=== PATIENT | male | born 1975 | race Caucasian/White ===

== ENCOUNTER 2024-06-12 10:19 | Emergency (ER) | payer BC ==
[~2024-06-12] VITALS: Ht 172.7 cm; Wt 63.0 kg
[~2024-06-12 10:19] MED LIST: FLOMAX0.4 MG PO; NORCO 325 MG-51 TA1 PO
[2024-06-12] MEDS ORDERED: fentaNYL 100 MCG/2 ML VIAL IV ONE (10:30)
[2024-06-12] MEDS ORDERED: NS 1,000 ML IV SCH (10:30)
[2024-06-12] MEDS ORDERED: Ketorolac 30 MG/ML VIAL IV ONE (10:30)
[2024-06-12 10:46] LABS: BASO # 0.04 K/mm3 (0.02-0.10); EOS # 0.07 K/mm3 (0.04-0.40); EOS % 0.5 % (0.0-4.0); HEMATOCRIT 45.5 % (42.0-52.0); HEMOGLOBIN 15.9 g/dL (13.5-18.0); LYMPH# 1.54 K/mm3 (1.50-4.00); MEAN CELL VOLUME 92 fl (78-100); MEAN CORPUSCULAR HEMOGLOBIN 32 pg (27-31); MEAN CORPUSCULAR HGB CONC 35 g/dL (33-37); MEAN PLATELET VOLUME 9.4 fl (7.4-10.4); MONO # 0.77 K/mm3 (0.20-0.80); NEU # 10.88 K/mm3 (1.40-6.50); PLATELET COUNT 193 K/mm3 (130-400); RED BLOOD COUNT 4.93 M/mm3 (4.20-5.60); RED CELL DISTRIBUTION WIDTH 13.1 % (11.5-14.5); WHITE BLOOD COUNT 13.3 K/mm3 (4.8-10.8)
[2024-06-12 10:55] LABS: CALCIUM 9.6 mg/dL (8.3-10.5)
[2024-06-12 12:33] LABS: URINE APPEARANCE CLOUDY (CLEAR); URINE BILIRUBIN NEGATIVE (NEGATIVE); URINE BLOOD 3+ (NEGATIVE); URINE COLOR YELLOW (YELLOW); URINE GLUCOSE NEGATIVE (NEGATIVE); URINE KETONE NEGATIVE (NEGATIVE); URINE LEUKOCYTE ESTERASE NEGATIVE (NEGATIVE); URINE NITRATE NEGATIVE (NEGATIVE); URINE PROTEIN(semi-quant) NEGATIVE (NEGATIVE); URINE WBC 0-1 /hpf (0-3)
[2024-06-12] MEDS ORDERED: PERCOCET 325 MG1 TA2 PO (12:59)
[2024-06-12] MEDS ORDERED: ZOFRAN ODT4 MG PO (12:59)
[2024-06-12] MEDS ORDERED: FLOMAX0.4 MG PO (13:01)
[2024-06-12 13:10] VITALS: BP 138/93
== END 2024-06-12 13:13 | disposition home or self-care (01) ==
LOC: ED 10:19
PROVIDERS: Family Medicine
DX: N20.0 Calculus of kidney (principal)
CPT/HCPCS: J1885; J3010; J7030